=== PATIENT | female | born 1960 | race Caucasian/White ===

== ENCOUNTER → 2018-03-19 11:45 | Outpatient (CLI) | payer OTHER, SELFPAY ==
[2018-03-19 11:51] LABS: RBC Urine None Seen (0-5/HPF)
[2018-03-19 12:17] LABS: Add Manual Diff / Slide Review NO; Basophils Percent Auto 0.9 % (0-2); Eosinophils Percent Auto 3.7 % (2-4); Hematocrit 41.4 % (36-46); Hemoglobin 13.9 g/dL (12.0-16.0); Lymphocytes Percent Auto 36.6 % (25-40); Mean Corpuscular HGB Conc 33.5 % (30-36); Mean Corpuscular Hemoglobin 28.8 PG (26-34); Mean Corpuscular Volume 85.8 fL (80-100); Monocytes Percent Auto 7.3 % (3-14); Neutrophils Absolute Auto 3400 /uL (3000-5900); Neutrophils Percent Auto 51.5 % (50-75); Platelet Count 277 X10^3/uL (150-400); Red Blood Cell Count 4.82 X10^6/uL (4.0-5.2); Red Cell Distribution Width 13.7 % (11.6-14.8); White Blood Cell Count 6.5 X10^3/uL (4.5-11.0)
[2018-03-19 12:29] LABS: Alanine Aminotransferase 35 IU/L (9-52); Albumin 4.4 g/dL (3.5-5.0); Albumin Globulin Ratio 1.6 (1.0-2.8); Alkaline Phosphatase 71 U/L (38-126); Aspartate Aminotransferase 24 IU/L (14-36); BUN Creatinine Ratio 23.8 (6-22); Bilirubin Total 0.5 mg/dL (0.2-1.3); Blood Urea Nitrogen 19 mg/dL (7-17); Calcium 9.2 mg/dL (8.4-10.2); Carbon Dioxide 29 mmol/L (22-32); Chloride 106 mmol/L (98-107); Cholesterol 219 mg/dL (140-199); Estimated Glomerular Filt Rate > 60.0 mL/min (>60); Globulin 2.7 g/dL (1.7-4.1); Glucose 103 mg/dL (70-100); HDL Cholesterol 54 mg/dL (40-60); HEMOLYSIS < 15 (0-50); LDL Cholesterol Calculated 119 mg/dL (<100); Sodium 145 mmol/L (137-145); Total Protein 7.1 g/dL (6.3-8.2); Triglycerides 231 mg/dL (35-150)
[2018-03-19 12:32] LABS: Appearance Urine UA CLEAR; Bilirubin Urine UA NEGATIVE (NEGATIVE); Color Urine UA YELLOW; Glucose Urine UA NEGATIVE (Normal); Ketones Urine UA NEGATIVE (NEGATIVE); Leukocyte Esterase Urine UA 1+ (NEGATIVE); Nitrite Urine UA Negative (Negative); Occult Blood Urine UA NEGATIVE (Negative); Protein Urine UA NEGATIVE (Negative); Urobilinogen Urine UA 0.2 E.U./dL (0.2)
[2018-03-19 13:02] LABS: Amorphous Sediment Urine 1+; Bacteria Urine Few (2-10); Mucus Urine 1+ (Negative); Squamous Epithelial Cell Urine 1-5 /HPF; Transitional Epi Cells Urine 0-1/HPF (0-5/HPF); WBC Urine 5-10/HPF (0-5/HPF)
[2018-03-19 13:04] LABS: Culture Indicated Urine Specimen Cultured
[2018-03-19 13:27] LABS: Thyroid Stimulating Hormone 2.13 uIU/mL (0.47-4.68)
== END ==
PROVIDERS: PCP Family Medicine; Visit Provider Family Medicine
DX: E78.1 Pure hyperglyceridemia (principal); I10 Essential (primary) hypertension; Z51.81 Encounter for therapeutic drug level monitoring
CPT/HCPCS: 36415; 80053; 80061; 81001; 84443; 85025; 87086

== ENCOUNTER → 2018-11-19 18:02 | Outpatient (CLI) | payer OTHER, SELFPAY ==
--- NOTE | 2018-11-19 | DI.RAD.S_ITS ---
PROCEDURE: XR KNEE LT 3V INDICATIONS: left knee pain TECHNIQUE: 3 views of the knee were acquired. COMPARISON: None. FINDINGS: Bones: Moderate tricompartment osteoarthritis is seen. No acute fractures or dislocations. No suspicious bony lesions. No patella subluxation. Soft tissues: There is small suprapatellar joint effusion. No suspicious soft tissue calcifications. IMPRESSION: Moderate tricompartmental osteoarthritis and small joint effusion. Dictated by: Azar Sommer M.D. on 11/20/2018 at 8:41 Approved by: Azar Sommer M.D. on 11/20/2018 at 8:43
== END ==
PROVIDERS: PCP Family Medicine; Visit Provider Physician Assistant
DX: M25.562 Pain in left knee (principal); M17.12 Unilateral primary osteoarthritis, left knee; M25.462 Effusion, left knee
CPT/HCPCS: 73562

== ENCOUNTER 2019-02-18 16:00 | Outpatient (RCR) | payer OTHER, SELFPAY ==
--- NOTE | 2019-01-15 15:17 | PT.OIE ---
Current Diagnoses Unilateral primary osteoarthritis, left knee (01/15/19) Pain in unspecified knee (01/15/19) Provider Visit Care Team Role Provider Type Connie Brown DO Attending Provider Physician Primary Care Provider Specialty: Family Practice Address: [address] [place] [address], [id number] Email: [email or web address] Physical Therapy Initial Evaluation PT-OP-A Visit Information Start: 01/14/19 09:41 Freq: Status: Active Protocol: Document 01/15/19 13:06 [facility] (Rec: 01/15/19 15:17 [facility] [id number]) Out-Patient Physical Therapy Visit Information Visit Information Visit Type Initial Evaluation Visit Start Time 13:47 Visit Stop Time 14:30 Total Visit Minutes 43 Visit Number 1 Number of [employer] Visits 0 PT-OP-B Current Condition Start: 01/14/19 09:41 Freq: Status: Active Protocol: Document 01/15/19 13:06 [facility] (Rec: 01/15/19 15:17 [facility] [id number]) Current Condition History of Current Condition Onset Date October Current Complaints B knee pain History of Current Condition Pt reports they were [place] and her knees were hurting while she was walking a lot. She was having a hard time getting up the stairs. Pt reports she had a lot going on when she returned from [place] and after could not put weight into left leg well. Pt reports November 19 was when she had start of significant L knee pain. Pt reports for several days it hurt so bad that she couldnt move it and used crutches and a cane for a few days. Pt reports it started to get better but both of her knees still bother her with movement. Pt reports she takes osteo biflex and that helps d /t history of mild knee pain. Pt reports she feels like her weight doesn't help Prior Treatments and Tests Xray show arthritis Treatment Goals Patient/Caregiver Goals Be able to walk without having to worry she is doing any damage; be able to work out in order to lose weight PT-OP-C Subjective Start: 01/14/19 09:41 Freq: Status: Active Protocol: Document 01/15/19 13:06 [facility] (Rec: 01/15/19 15:17 [facility] [id number]) Patient Questionnaires Lower Extremity Functional Scale LEFS Score 45 LEFS Impairment 40 to 59% Impaired (Score 32- 47) OP-PT Pain Assessment Location B knees Pain Location Details L>R; pain all around the knee Scale Used Numeric (1 - 10) Description Aching Sharp Frequency Intermittent Pain Aggravating Factors Standing Walking Stair Climbing Other Pain Aggravating Factors stand on it wrong, squatting, standing after sitting for a while Pain Alleviating Factors Cold Medication Other Pain Alleviating Factors tumeric PT-OP-F Manual Assessment Start: 01/14/19 09:41 Freq: Status: Active Protocol: Document 01/15/19 13:06 [facility] (Rec: 01/15/19 15:17 [facility] [id number]) Manual Assessments Joint Mobility Assessment Joint Mobility Assessment equal greater trochanter & iliac crests; compensated supinated B feet, ER of femur & tibia L and ER of femur & IR tibia R PT-OP-G Mobility & Gait Start: 01/14/19 09:41 Freq: Status: Active Protocol: Document 01/15/19 13:06 [facility] (Rec: 01/15/19 15:17 [facility] [id number]) OP Gait Assessment Comments Gait Comments Pt has ER of left side of pelvis with push off and dec ant elevation & post depression PT-OP-K Range of Motion Start: 01/14/19 09:41 Freq: Status: Active Protocol: Document 01/15/19 13:06 [facility] (Rec: 01/15/19 15:17 [facility] [id number]) Knee Goniometric Range of Motion Knee Right Flexion Active (degrees) 115 Extension Active (degrees) 0 Left Flexion Active (degrees) 115 Extension Active (degrees) 4 PT-OP-L Special Tests Start: 01/14/19 09:41 Freq: Status: Active Protocol: Document 01/15/19 13:06 [facility] (Rec: 01/15/19 15:17 [facility] [id number]) Special Tests Knee Special Tests Royer Test Results slight tightness L Alexandra Test Test Results neg B Posterior Draw Test Results neg B Varus- 25 Degrees Test Results neg B Valgus- 25 Degrees Test Results slight laxity L Edelmira's Test Results neg B Apley's Compression Test Results neg B Straight Leg Raise Test Results mild HS tightness PT-OP-M Strength Start: 01/14/19 09:41 Freq: Status: Active Protocol: Document 01/15/19 13:06 [facility] (Rec: 01/15/19 15:17 [facility] [id number]) Hip Strength Hip Manual Muscle Testing Right Flexion (L2) 5 Normal Extension (S1) 3+ Fair+ Abduction 4 Good Adduction 5 Normal External Rotation 5 Normal Internal Rotation 5 Normal Left Extension (S1) 3+ Fair+ Abduction 3+ Fair+ External Rotation 3+ Fair+ Internal Rotation 3+ Fair+ Knee Strength Knee Manual Muscle Testing Right Flexion (S2) 4+ Good+ Extension (L3) 4+ Good+ Left Flexion (S2) 4 Good Extension (L3) 4 Good Ankle/Foot Strength Ankle and Foot Manual Muscle Testing Right Dorsiflexion (L4) 5 Normal Plantarflexion (S1) 5 Normal Left Dorsiflexion (L4) 5 Normal Plantarflexion (S1) 4+ Good+ PT-OP-Q Treatments Start: 01/14/19 09:41 Freq: Status: Active Protocol: Document 01/15/19 13:06 [facility] (Rec: 01/15/19 15:17 [facility] [id number]) Therapeutic Exercises Sidelying Exercises IR Sidelying Exercise Name reverse clamshell Side bilateral Reps/Minutes 10 abd Sidelying Exercise Name hip Side bilateral Reps/Minutes 10 ER Sidelying Exercise Name clamshells Side bilateral Reps/Minutes 15 Standing Exercises heel raises Standing Exercise Name single leg Side bilateral Reps/Minutes 20 PT-OP-T Assessment and Plan Start: 01/14/19 09:41 Freq: Status: Active Protocol: Document 01/15/19 13:06 [facility] (Rec: 01/15/19 15:17 [facility] [id number]) Physical Therapy Assessment Rehab Potential Rehabilitation Potential Excellent Evaluation Complexity Number of Personal Factors/Comorbidities 3 or More Number of Body Systems Impaired 4 or More Clinical Presentation at Evaluation Stable Impairments Impairments Activity Tolerance Balance Functional Activities Functional Mobility Gait Pain Posture ROM Soft Tissue Mobility Goals stairs Retirement Goal (LTG) Pt will be able to go up/down stairs reciprocally without pain LTG Duration 03/17/19 strength Short Term Goal (STG) Pt will be indep with HEP STG Duration 02/14/19 Retirement Goal (LTG) Pt will have 5/5 LE strength in order to allow her to workout and do typical activities LTG Duration 03/17/19 walking Retirement Goal (LTG) Pt will be able to walk 2 miles without inc in pain more than 1 point. LTG Duration 03/17/19 Assessment Summary Assessment Pt presents with B knee pain likely d/t OA as seen in imaging. No positive ligamentous or meniscal testing. She has significant L >R sided weakness and will require PT in order to address gait deviations, dec activity tolerance, pain, and weakness . Physical Therapy Plan Frequency and Duration Frequency of Treatment 1-2x/week Duration of Treatment 2 months Plan of Care Start Date 01/15/19 Plan of Care End Date 03/17/19 Therapeutic Interventions Therapeutic Interventions Aquatic Therapy Balance Training Gait Training Home Exercise Program Joint Mobilizations Manual Therapy Neuromuscular Re-education Patient/Caregiver Education Self-Care/Home Management Soft Tissue Mobilization Taping Therapeutic Activities Therapeutic Exercises Modalities Cold Pack/Ice Massage Electric Stimulation Hot Packs Infrared Therapy Iontophoresis Ultrasound Next Visit Focus/Plan Next Note Type Treatment Note Next Visit Plan advance hip strenghtening, review HEP, assess soft tissue mobility, seated stepper
--- NOTE | 2019-01-15 15:18 | PT.OPPOC ---
Current Diagnoses Unilateral primary osteoarthritis, left knee (01/15/19) Pain in unspecified knee (01/15/19) Provider Visit Care Team Role Provider Type Connie Brown DO Attending Provider Physician Primary Care Provider Specialty: Family Practice Address: [address] [place] [address], [id number] Email: [email or web address] Plan Of Care PT-OP-T Assessment and Plan Start: 01/14/19 09:41 Freq: Status: Active Protocol: Document 01/15/19 13:06 [facility] (Rec: 01/15/19 15:17 [facility] [id number]) Physical Therapy Assessment Rehab Potential Rehabilitation Potential Excellent Evaluation Complexity Number of Personal Factors/Comorbidities 3 or More Number of Body Systems Impaired 4 or More Clinical Presentation at Evaluation Stable Impairments Impairments Activity Tolerance Balance Functional Activities Functional Mobility Gait Pain Posture ROM Soft Tissue Mobility Goals stairs Group Home Goal (LTG) Pt will be able to go up/down stairs reciprocally without pain LTG Duration 03/17/19 strength Short Term Goal (STG) Pt will be indep with HEP STG Duration 02/14/19 Group Home Goal (LTG) Pt will have 5/5 LE strength in order to allow her to workout and do typical activities LTG Duration 03/17/19 walking Group Home Goal (LTG) Pt will be able to walk 2 miles without inc in pain more than 1 point. LTG Duration 03/17/19 Assessment Summary Assessment Pt presents with B knee pain likely d/t OA as seen in imaging. No positive ligamentous or meniscal testing. She has significant L >R sided weakness and will require PT in order to address gait deviations, dec activity tolerance, pain, and weakness . Physical Therapy Plan Frequency and Duration Frequency of Treatment 1-2x/week Duration of Treatment 2 months Plan of Care Start Date 01/15/19 Plan of Care End Date 03/17/19 Therapeutic Interventions Therapeutic Interventions Aquatic Therapy Balance Training Gait Training Home Exercise Program Joint Mobilizations Manual Therapy Neuromuscular Re-education Patient/Caregiver Education Self-Care/Home Management Soft Tissue Mobilization Taping Therapeutic Activities Therapeutic Exercises Modalities Cold Pack/Ice Massage Electric Stimulation Hot Packs Infrared Therapy Iontophoresis Ultrasound Next Visit Focus/Plan Next Note Type Treatment Note Next Visit Plan advance hip strenghtening, review HEP, assess soft tissue mobility, seated stepper Plan of Care Dates Plan of Care Start Date 01/15/19 Plan of Care End Date 03/17/19 Please Sign and Return: I have reviewed this Plan of Care and certify that the skilled therapy services above are required to meet the patient?s needs. Physician Signature Date Printed Name and Credentials Clinical Instructor Signature Printed Name and Credentials
--- NOTE | 2019-01-22 12:33 | PT.OTN ---
Current Diagnoses Unilateral primary osteoarthritis, left knee (01/21/19) Pain in unspecified knee (01/21/19) Physical Therapy Treatment Note PT-OP-A Visit Information Start: 01/14/19 09:41 Freq: Status: Active Protocol: Document 01/21/19 11:30 [facility] (Rec: 01/22/19 12:33 [facility] [id number]) Out-Patient Physical Therapy Visit Information Visit Information Visit Type Treatment Note Visit Start Time 11:30 Visit Stop Time 12:15 Total Visit Minutes 45 Visit Number 2 Evaluation Information Evaluation Date 01/15/19 PT-OP-B Current Condition Start: 01/14/19 09:41 Freq: Status: Active Protocol: Document 01/15/19 13:06 [facility] (Rec: 01/15/19 15:17 [facility] [id number]) Current Condition History of Current Condition Onset Date October Current Complaints B knee pain History of Current Condition Pt reports they were [place] and her knees were hurting while she was walking a lot. She was having a hard time getting up the stairs. Pt reports she had a lot going on when she returned [place] and after could not put weight into left leg well. Pt reports November 19 was when she had start of significant L knee pain. Pt reports for several days it hurt so bad that she couldnt move it and used crutches and a cane for a few days. Pt reports it started to get better but both of her knees still bother her with movement. Pt reports she takes osteo biflex and that helps d /t history of mild knee pain. Pt reports she feels like her weight doesn't help Prior Treatments and Tests Xray show arthritis Treatment Goals Patient/Caregiver Goals Be able to walk without having to worry she is doing any damage; be able to work out in order to lose weight PT-OP-C Subjective Start: 01/14/19 09:41 Freq: Status: Active Protocol: Document 01/21/19 11:30 [facility] (Rec: 01/22/19 12:33 [facility] [id number]) OP-PT Subjective Patient Comments Patient Comments Claire reports she has been working on her exercises and feels better with them. She has her most difficulty going up and down stairs. PT-OP-F Manual Assessment Start: 01/14/19 09:41 Freq: Status: Active Protocol: Document 01/15/19 13:06 [facility] (Rec: 01/15/19 15:17 [facility] [id number]) Manual Assessments Joint Mobility Assessment Joint Mobility Assessment equal greater trochanter & iliac crests; compensated supinated B feet, ER of femur & tibia L and ER of femur & IR tibia R PT-OP-G Mobility & Gait Start: 01/14/19 09:41 Freq: Status: Active Protocol: Document 01/15/19 13:06 [facility] (Rec: 01/15/19 15:17 [facility] [id number]) OP Gait Assessment Comments Gait Comments Pt has ER of left side of pelvis with push off and dec ant elevation & post depression PT-OP-K Range of Motion Start: 01/14/19 09:41 Freq: Status: Active Protocol: Document 01/15/19 13:06 [facility] (Rec: 01/15/19 15:17 [facility] [id number]) Knee Goniometric Range of Motion Knee Right Flexion Active (degrees) 115 Extension Active (degrees) 0 Left Flexion Active (degrees) 115 Extension Active (degrees) 4 PT-OP-L Special Tests Start: 01/14/19 09:41 Freq: Status: Active Protocol: Document 01/15/19 13:06 [facility] (Rec: 01/15/19 15:17 [facility] [id number]) Special Tests Knee Special Tests Royer Test Results slight tightness L Alexandra Test Test Results neg B Posterior Draw Test Results neg B Varus- 25 Degrees Test Results neg B Valgus- 25 Degrees Test Results slight laxity L Edelmira's Test Results neg B Apley's Compression Test Results neg B Straight Leg Raise Test Results mild HS tightness PT-OP-M Strength Start: 01/14/19 09:41 Freq: Status: Active Protocol: Document 01/15/19 13:06 [facility] (Rec: 01/15/19 15:17 [facility] [id number]) Hip Strength Hip Manual Muscle Testing Right Flexion (L2) 5 Normal Extension (S1) 3+ Fair+ Abduction 4 Good Adduction 5 Normal External Rotation 5 Normal Internal Rotation 5 Normal Left Extension (S1) 3+ Fair+ Abduction 3+ Fair+ External Rotation 3+ Fair+ Internal Rotation 3+ Fair+ Knee Strength Knee Manual Muscle Testing Right Flexion (S2) 4+ Good+ Extension (L3) 4+ Good+ Left Flexion (S2) 4 Good Extension (L3) 4 Good Ankle/Foot Strength Ankle and Foot Manual Muscle Testing Right Dorsiflexion (L4) 5 Normal Plantarflexion (S1) 5 Normal Left Dorsiflexion (L4) 5 Normal Plantarflexion (S1) 4+ Good+ PT-OP-Q Treatments Start: 01/14/19 09:41 Freq: Status: Active Protocol: Document 01/21/19 11:30 [facility] (Rec: 01/22/19 12:33 [facility] [id number]) Cardio Equipment Recumbent Bicycle Duration (Minutes) 5 Resistance 0 Seat Position closest position Gym Equipment Shuttle Recovery Unilateral Squats Resistance 25 lbs Reps/Time x 15 each Bilateral Squats Details bilateral squats Resistance 37 lbs Reps/Time 3 sets of 10 reps Therapeutic Exercises Supine Exercises 1 Supine Exercise Name quad sets Reps/Minutes 10 reps x 5 second hold Sidelying Exercises IR Sidelying Exercise Name reverse clamshell Side bilateral Reps/Minutes 2x 10 reps abd Sidelying Exercise Name hip abduction Side bilateral Reps/Minutes 2 x 10 ER Sidelying Exercise Name clamshells Side bilateral Reps/Minutes 2 x 10 Standing Exercises 4 Standing Exercise Name sit to stand with hip hinge Reps/Minutes x 10 reps 3 Standing Exercise Name standing hip abduction in parallel bars Reps/Minutes 2 x 10 2 Standing Exercise Name standing calf stretch Reps/Minutes 2 x 30 seconds 1 Standing Exercise Name standing single leg balance Reps/Minutes x 3 reps heel raises Standing Exercise Name single leg Side bilateral Reps/Minutes 20 PT-OP-T Assessment and Plan Start: 01/14/19 09:41 Freq: Status: Active Protocol: Document 01/21/19 11:30 [facility] (Rec: 01/22/19 12:33 [facility] [id number]) Physical Therapy Assessment Assessment Summary Assessment Good tolerance for recumbant bike today and pt has a stationary bike at home that she will start using. Added in standing strengthening exercises, balance training, and strength training on the shuttle. Good tolerance for ther ex today. The patient collapses in on the left arch more so than the right and I did talk to her about super feet today to help support. Physical Therapy Plan Frequency and Duration Frequency of Treatment 1-2x/week Duration of Treatment 2 months Plan of Care Start Date 01/15/19 Plan of Care End Date 03/17/19 Therapeutic Interventions Therapeutic Interventions Aquatic Therapy Balance Training Gait Training Home Exercise Program Joint Mobilizations Manual Therapy Neuromuscular Re-education Patient/Caregiver Education Self-Care/Home Management Soft Tissue Mobilization Taping Therapeutic Activities Therapeutic Exercises Modalities Cold Pack/Ice Massage Electric Stimulation Hot Packs Infrared Therapy Iontophoresis Ultrasound Next Visit Focus/Plan Next Note Type Treatment Note Next Visit Plan continue to advance exercises as tolerated, work on hip hinge with squat and continue to strengthen hip and knee
--- NOTE | 2019-02-04 11:14 | PT.OTN ---
Current Diagnoses Unilateral primary osteoarthritis, left knee (02/04/19) Pain in unspecified knee (02/04/19) Physical Therapy Treatment Note PT-OP-A Visit Information Start: 01/14/19 09:41 Freq: Status: Active Protocol: Document 02/04/19 10:30 DC[facility] (Rec: 02/04/19 11:14 DCW [id number]) Out-Patient Physical Therapy Visit Information Visit Information Visit Type Treatment Note Visit Start Time 10:30 Visit Stop Time 11:15 Total Visit Minutes 45 Visit Number 3 Evaluation Information Evaluation Date 01/15/19 PT-OP-B Current Condition Start: 01/14/19 09:41 Freq: Status: Active Protocol: Document 01/15/19 13:06 [facility] (Rec: 01/15/19 15:17 [facility] [id number]) Current Condition History of Current Condition Onset Date October Current Complaints B knee pain History of Current Condition Pt reports they were [place] and her knees were hurting while she was walking a lot. She was having a hard time getting up the stairs. Pt reports she had a lot going on when she returned [place] and after could not put weight into left leg well. Pt reports November 19 was when she had start of significant L knee pain. Pt reports for several days it hurt so bad that she couldnt move it and used crutches and a cane for a few days. Pt reports it started to get better but both of her knees still bother her with movement. Pt reports she takes osteo biflex and that helps d /t history of mild knee pain. Pt reports she feels like her weight doesn't help Prior Treatments and Tests Xray show arthritis Treatment Goals Patient/Caregiver Goals Be able to walk without having to worry she is doing any damage; be able to work out in order to lose weight PT-OP-C Subjective Start: 01/14/19 09:41 Freq: Status: Active Protocol: Document 02/04/19 10:30 DC[facility] (Rec: 02/04/19 11:14 DCW [id number]) OP-PT Subjective Patient Comments Patient Comments Pt notes her knees are doing better overall, still has most of her pain with stairs. PT-OP-F Manual Assessment Start: 01/14/19 09:41 Freq: Status: Active Protocol: Document 01/15/19 13:06 [facility] (Rec: 01/15/19 15:17 [facility] [id number]) Manual Assessments Joint Mobility Assessment Joint Mobility Assessment equal greater trochanter & iliac crests; compensated supinated B feet, ER of femur & tibia L and ER of femur & IR tibia R PT-OP-G Mobility & Gait Start: 01/14/19 09:41 Freq: Status: Active Protocol: Document 01/15/19 13:06 [facility] (Rec: 01/15/19 15:17 [facility] [id number]) OP Gait Assessment Comments Gait Comments Pt has ER of left side of pelvis with push off and dec ant elevation & post depression PT-OP-K Range of Motion Start: 01/14/19 09:41 Freq: Status: Active Protocol: Document 01/15/19 13:06 [facility] (Rec: 01/15/19 15:17 [facility] [id number]) Knee Goniometric Range of Motion Knee Right Flexion Active (degrees) 115 Extension Active (degrees) 0 Left Flexion Active (degrees) 115 Extension Active (degrees) 4 PT-OP-L Special Tests Start: 01/14/19 09:41 Freq: Status: Active Protocol: Document 01/15/19 13:06 [facility] (Rec: 01/15/19 15:17 [facility] [id number]) Special Tests Knee Special Tests Royer Test Results slight tightness L Alexandra Test Test Results neg B Posterior Draw Test Results neg B Varus- 25 Degrees Test Results neg B Valgus- 25 Degrees Test Results slight laxity L Edelmira's Test Results neg B Apley's Compression Test Results neg B Straight Leg Raise Test Results mild HS tightness PT-OP-M Strength Start: 01/14/19 09:41 Freq: Status: Active Protocol: Document 01/15/19 13:06 [facility] (Rec: 01/15/19 15:17 [facility] [id number]) Hip Strength Hip Manual Muscle Testing Right Flexion (L2) 5 Normal Extension (S1) 3+ Fair+ Abduction 4 Good Adduction 5 Normal External Rotation 5 Normal Internal Rotation 5 Normal Left Extension (S1) 3+ Fair+ Abduction 3+ Fair+ External Rotation 3+ Fair+ Internal Rotation 3+ Fair+ Knee Strength Knee Manual Muscle Testing Right Flexion (S2) 4+ Good+ Extension (L3) 4+ Good+ Left Flexion (S2) 4 Good Extension (L3) 4 Good Ankle/Foot Strength Ankle and Foot Manual Muscle Testing Right Dorsiflexion (L4) 5 Normal Plantarflexion (S1) 5 Normal Left Dorsiflexion (L4) 5 Normal Plantarflexion (S1) 4+ Good+ PT-OP-Q Treatments Start: 01/14/19 09:41 Freq: Status: Active Protocol: Document 02/04/19 10:30 [facility] (Rec: 02/04/19 11:14 [facility] [id number]) Cardio Equipment Recumbent Bicycle Duration (Minutes) 5 Resistance 3 Seat Position 2 Gym Equipment Shuttle Recovery Unilateral Squats Resistance 37# Reps/Time x15 Bilateral Squats Resistance 62# Reps/Time 2x15 Therapeutic Exercises Supine Exercises Bridging Supine Exercise Name Bridging SAQ Supine Exercise Name SAQ Side bilateral Resistance 4# SLR Supine Exercise Name SLR Side bilateral Resistance 4# Sitting Exercises HS Curls Sitting Exercise Name HS Curls Side bilateral Resistance Lv 3 Equipment Used T-band Standing Exercises Step-ups Standing Exercise Name Step-ups/downs Side bilateral Equipment Used 4 step TKE Standing Exercise Name TKE Side bilateral Resistance Lv 3 Equipment Used T-band 2 Standing Exercise Name standing calf stretch Reps/Minutes 2 x 30 seconds 1 Standing Exercise Name standing single leg balance Reps/Minutes x 3 reps heel raises Standing Exercise Name single leg Side bilateral Reps/Minutes 20 PT-OP-T Assessment and Plan Start: 01/14/19 09:41 Freq: Status: Active Protocol: Document 02/04/19 10:30 [facility] (Rec: 02/04/19 11:14 [facility] [id number]) Physical Therapy Assessment Impairments Impairments Activity Tolerance Balance Functional Activities Functional Mobility Gait Pain Posture ROM Soft Tissue Mobility Goals stairs Fish Flipper Goal (LTG) Pt will be able to go up/down stairs reciprocally without pain LTG Duration 03/17/19 strength Short Term Goal (STG) Pt will be indep with HEP STG Duration 02/14/19 Senior Living Goal (LTG) Pt will have 5/5 LE strength in order to allow her to workout and do typical activities LTG Duration 03/17/19 walking Fish Flipper Goal (LTG) Pt will be able to walk 2 miles without inc in pain more than 1 point. LTG Duration 03/17/19 Assessment Summary Assessment Pt tolerated increased resistance and new exercises very well today, had no complaints of pain or difficulty by end of session. Physical Therapy Plan Frequency and Duration Frequency of Treatment 1-2x/week Duration of Treatment 2 months Plan of Care Start Date 01/15/19 Plan of Care End Date 03/17/19 Therapeutic Interventions Therapeutic Interventions Aquatic Therapy Balance Training Gait Training Home Exercise Program Joint Mobilizations Manual Therapy Neuromuscular Re-education Patient/Caregiver Education Self-Care/Home Management Soft Tissue Mobilization Taping Therapeutic Activities Therapeutic Exercises Modalities Cold Pack/Ice Massage Electric Stimulation Hot Packs Infrared Therapy Iontophoresis Ultrasound Next Visit Focus/Plan Next Note Type Treatment Note Next Visit Plan continue to advance exercises as tolerated, work on hip hinge with squat and continue to strengthen hip and knee
--- NOTE | 2019-02-18 18:59 | PT.OTN ---
Current Diagnoses Unilateral primary osteoarthritis, left knee (02/18/19) Pain in unspecified knee (02/18/19) Physical Therapy Treatment Note PT-OP-A Visit Information Start: 01/14/19 09:41 Freq: Status: Active Protocol: Document 02/18/19 16:15 [facility] (Rec: 02/18/19 18:03 [facility] [id number]) Out-Patient Physical Therapy Visit Information Visit Information Visit Type Discharge Summary Visit Start Time 16:15 Visit Stop Time 16:55 Total Visit Minutes 40 Visit Number 4 Number of [employer]OU[employer] ARCHITECT Visits 0 PT-OP-B Current Condition Start: 01/14/19 09:41 Freq: Status: Active Protocol: Document 01/15/19 13:06 [facility] (Rec: 01/15/19 15:17 [facility] [id number]) Current Condition History of Current Condition Onset Date October Current Complaints B knee pain History of Current Condition Pt reports they were [place] and her knees were hurting while she was walking a lot. She was having a hard time getting up the stairs. Pt reports she had a lot going on when she [place] and after could not put weight into left leg well. Pt reports November 19 was when she had start of significant L knee pain. Pt reports for several days it hurt so bad that she couldnt move it and used crutches and a cane for a few days. Pt reports it started to get better but both of her knees still bother her with movement. Pt reports she takes osteo biflex and that helps d /t history of mild knee pain. Pt reports she feels like her weight doesn't help Prior Treatments and Tests Xray show arthritis Treatment Goals Patient/Caregiver Goals Be able to walk without having to worry she is doing any damage; be able to work out in order to lose weight PT-OP-C Subjective Start: 01/14/19 09:41 Freq: Status: Active Protocol: Document 02/18/19 16:15 [facility] (Rec: 02/18/19 18:03 [facility] [id number]) OP-PT Subjective Patient Comments Patient Comments Pt states that she has had no pain, but still feels a little weaker in her L leg. She feel confident with her HEP and would like to discharge today, as she will be out of town next week. She believes that her weight has an effect on her knee pain and is actively trying to lose weight. PT-OP-F Manual Assessment Start: 01/14/19 09:41 Freq: Status: Active Protocol: Document 01/15/19 13:06 [facility] (Rec: 01/15/19 15:17 [facility] [id number]) Manual Assessments Joint Mobility Assessment Joint Mobility Assessment equal greater trochanter & iliac crests; compensated supinated B feet, ER of femur & tibia L and ER of femur & IR tibia R PT-OP-G Mobility & Gait Start: 01/14/19 09:41 Freq: Status: Active Protocol: Document 01/15/19 13:06 [facility] (Rec: 01/15/19 15:17 [facility] [id number]) OP Gait Assessment Comments Gait Comments Pt has ER of left side of pelvis with push off and dec ant elevation & post depression PT-OP-K Range of Motion Start: 01/14/19 09:41 Freq: Status: Active Protocol: Document 01/15/19 13:06 [facility] (Rec: 01/15/19 15:17 [facility] [id number]) Knee Goniometric Range of Motion Knee Right Flexion Active (degrees) 115 Extension Active (degrees) 0 Left Flexion Active (degrees) 115 Extension Active (degrees) 4 PT-OP-L Special Tests Start: 01/14/19 09:41 Freq: Status: Active Protocol: Document 01/15/19 13:06 [facility] (Rec: 01/15/19 15:17 [facility] [id number]) Special Tests Knee Special Tests Royer Test Results slight tightness L Alexandra Test Test Results neg B Posterior Draw Test Results neg B Varus- 25 Degrees Test Results neg B Valgus- 25 Degrees Test Results slight laxity L Edelmira's Test Results neg B Apley's Compression Test Results neg B Straight Leg Raise Test Results mild HS tightness PT-OP-M Strength Start: 01/14/19 09:41 Freq: Status: Active Protocol: Document 02/18/19 16:15 [facility] (Rec: 02/18/19 16:22 [facility] [id number]) Hip Strength Hip Manual Muscle Testing Right Extension (S1) 5 Normal Abduction 5 Normal Left Flexion (L2) 4- Good- Extension (S1) 4 Good Abduction 5 Normal External Rotation 5 Normal Internal Rotation 5 Normal Knee Strength Knee Manual Muscle Testing Right Flexion (S2) 4+ Good+ Extension (L3) 5 Normal Left Flexion (S2) 4+ Good+ Extension (L3) 5 Normal Ankle/Foot Strength Ankle and Foot Manual Muscle Testing Left Dorsiflexion (L4) 5 Normal Plantarflexion (S1) 5 Normal PT-OP-Q Treatments Start: 01/14/19 09:41 Freq: Status: Active Protocol: Document 02/18/19 16:15 [facility] (Rec: 02/18/19 18:03 [facility] [email or web address]) Cardio Equipment Recumbent Bicycle Duration (Minutes) 5 Resistance 3 Seat Position 2 Gym Equipment Shuttle Recovery Unilateral Squats Resistance 50# Reps/Time 15 reps Bilateral Squats Resistance 75# Reps/Time 15 reps Therapeutic Exercises Sidelying Exercises IR Sidelying Exercise Name reverse clamshell Side bilateral Resistance level 2 Equipment Used theraband Reps/Minutes 10 reps abd Sidelying Exercise Name hip abduction Side bilateral Resistance level 2 Equipment Used theraband Reps/Minutes 10 reps ER Sidelying Exercise Name clamshells Side bilateral Resistance level 2 Equipment Used theraband Reps/Minutes 10 reps Sitting Exercises HS Curls Sitting Exercise Name HS Curls Side bilateral Resistance gym machine Reps/Minutes 3x10 reps Comments educated on use and added to HEP Standing Exercises Step-ups Standing Exercise Name Step-ups/downs Side bilateral Equipment Used 6 step Comments educated on forward weight shift during descent. pt reported no pain 4 Standing Exercise Name sit to stand with hip hinge Resistance level 2 Equipment Used theraband Reps/Minutes x 10 reps Comments tband around thighs heel raises Standing Exercise Name single leg Side bilateral Reps/Minutes 10 each side Self-Care/Home Management Treatment Education Patient Education Home Exercise Program Other Education pt form checked and progressed sidelying exercises (level 2 theraband). pt has a bike and home gym and feels confident in performing exercises at home PT-OP-T Assessment and Plan Start: 01/14/19 09:41 Freq: Status: Active Protocol: Document 02/18/19 16:15 [facility] (Rec: 02/18/19 18:03 [facility] [email or web address]) Physical Therapy Assessment Goals stairs Alf Goal (LTG) Pt will be able to go up/down stairs reciprocally without pain LTG Duration goal met strength Short Term Goal (STG) Pt will be indep with HEP STG Duration goal met Alf Goal (LTG) Pt will have 5/5 LE strength in order to allow her to workout and do typical activities LTG Duration progressing walking Alf Goal (LTG) Pt will be able to walk 2 miles without inc in pain more than 1 point. LTG Duration goal met Assessment Summary Assessment Pt has met most goals and feels confident that performing HEP will help address strength deficits. She has not walked 2 miles but feels confident that she could w/o pain. Pt felt comfortable w progression of HEP. Physical Therapy Plan Discharge Physical Therapy Discharge Reasons Goals Met Discharge Comments most goals have been met and pt plans to continue and progress HEP to address LE weakness
== END 2019-02-25 10:40 | disposition home or self-care (01) ==
LOC: PHYS 16:00
PROVIDERS: PCP Family Medicine; Visit Provider Family Medicine
DX: M25.569 Pain in unspecified knee (principal); M17.12 Unilateral primary osteoarthritis, left knee
CPT/HCPCS: 97110; 97161; 97535

== ENCOUNTER → 2019-06-22 11:24 | Outpatient (CLI) | payer OTHER, SELFPAY ==
[2019-06-22 12:20] LABS: Add Manual Diff / Slide Review NO; Basophils Absolute Auto 100 /uL (0-100); Basophils Percent Auto 0.9 % (0-2); Eosinophils Absolute Auto 200 /uL (0-450); Eosinophils Percent Auto 3.3 % (2-4); Hematocrit 40.8 % (36-46); Hemoglobin 13.7 g/dL (12.0-16.0); Lymphocytes Absolute Auto 2200 /uL (1100-4500); Lymphocytes Percent Auto 34.5 % (25-40); Mean Corpuscular HGB Conc 33.7 % (30-36); Mean Corpuscular Hemoglobin 28.8 PG (26-34); Mean Corpuscular Volume 85.6 fL (80-100); Monocytes Absolute Auto 400 /uL (0-900); Monocytes Percent Auto 6.7 % (3-14); Neutrophils Absolute Auto 3500 /uL (1500-7000); Neutrophils Percent Auto 54.6 % (50-75); Platelet Count 275 X10^3/uL (150-400); Red Blood Cell Count 4.76 X10^6/uL (4.0-5.2); Red Cell Distribution Width 13.9 % (11.6-14.8); White Blood Cell Count 6.4 X10^3/uL (4.5-11.0)
[2019-06-22 12:30] LABS: Alanine Aminotransferase 29 IU/L (<35); Albumin 4.3 g/dL (3.5-5.0); Albumin Globulin Ratio 1.5 (1.0-2.8); Alkaline Phosphatase 82 U/L (38-126); Aspartate Aminotransferase 27 IU/L (14-36); BUN Creatinine Ratio 22.5 (6-22); Bilirubin Total 0.5 mg/dL (0.2-1.3); Blood Urea Nitrogen 18 mg/dL (7-17); Calcium 9.4 mg/dL (8.4-10.2); Carbon Dioxide 29 mmol/L (22-32); Chloride 106 mmol/L (98-107); Cholesterol 228 mg/dL (140-199); Estimated Glomerular Filt Rate > 60.0 mL/min (>60); Globulin 2.8 g/dL (1.7-4.1); Glucose 102 mg/dL (70-100); HDL Cholesterol 48 mg/dL (40-60); HEMOLYSIS < 15 (0-50); LDL Cholesterol Calculated 128 mg/dL (<100); Potassium 4.7 mmol/L (3.4-5.1); Sodium 141 mmol/L (137-145); Total Protein 7.1 g/dL (6.3-8.2); Triglycerides 261 mg/dL (35-150)
[2019-06-22 13:09] LABS: Thyroid Stimulating Hormone 1.41 uIU/mL (0.47-4.68)
== END ==
PROVIDERS: PCP Family Medicine; Visit Provider Family Medicine
DX: Z51.81 Encounter for therapeutic drug level monitoring (principal); E78.1 Pure hyperglyceridemia; I10 Essential (primary) hypertension; K21.9 Gastro-esophageal reflux disease without esophagitis
CPT/HCPCS: 36415; 80053; 80061; 84443; 85025

== ENCOUNTER → 2019-07-21 10:56 | Outpatient (CLI) | payer OTHER, SELFPAY ==
[2019-07-21 11:45] LABS: Appearance Urine UA SL CLOUDY; Bilirubin Urine UA NEGATIVE (NEGATIVE); Color Urine UA YELLOW; Glucose Urine UA NEGATIVE (Negative); Ketones Urine UA NEGATIVE (NEGATIVE); Leukocyte Esterase Urine UA 2+ (NEGATIVE); Nitrite Urine UA NEGATIVE (Negative); Occult Blood Urine UA NEGATIVE (Negative); Protein Urine UA NEGATIVE (Negative); Urobilinogen Urine UA 0.2 E.U./dL (0.2)
[2019-07-21 12:21] LABS: RBC Urine None Seen (0-5/HPF)
[2019-07-21 12:22] LABS: Bacteria Urine Moderate (10-30); Squamous Epithelial Cell Urine 10-30 /HPF (0-5/HPF); WBC Urine 30-100/HPF (0-5/HPF)
== END ==
PROVIDERS: PCP Family Medicine; Visit Provider Family Medicine
DX: I10 Essential (primary) hypertension (principal); E78.1 Pure hyperglyceridemia
CPT/HCPCS: 81003; 81015

== ENCOUNTER 2020-04-27 15:49 | Emergency (ER) | payer OTHER, SELFPAY ==
[2020-04-27] VITALS (10 sets, daily range): BP systolic 124–149; BP diastolic 68–87; PULSE 63–80; RESP 12–19; TEMP 35.7; O2SAT 96–99; BMI 22.6
--- NOTE | 2020-04-27 16:51 | ED_ITS ---
HPI - General Adult <Elieser Chaves DO - Last Filed: 04/28/20 07:09> General Chief complaint: Dizziness Stated complaint: dizzy, high blood pressure Time Seen by Provider: 04/27/20 16:37 Source: patient Mode of arrival: Wheelchair Limitations: no limitations History of Present Illness HPI narrative: 59-year-old female who stated that this morning she woke up and rolled onto her side and had a sudden onset of a room spinning sensation. Has been consistent since then. Has never had anything like this in the past. No headache or sore throat or ringing in her ears. No chest pain or palpitations or shortness of breath. She states that her symptoms seem to be much better when she is lying still and having her head face forward. She can reproduce the symptoms by looking to the left. No trauma. Has not tried anything for symptoms prior to arrival. Related Data Home Medications Medication Instructions Recorded Confirmed [CO-Q-10] #0 10/16/16 07/24/19 [probiotic] #0 11/28/16 07/24/19 glucosamine sulfate [Genicin] 500 mg PO #0 11/28/16 07/24/19 esomeprazole magnesium 20 mg 20 mg PO DAILY 09/19/18 07/24/19 capsule,delayed release turmeric root extract 500 mg 500 mg PO DAILY 07/24/19 07/24/19 capsule Previous Rx's Medication Instructions Recorded losartan 100 mg tablet 100 mg PO Q AM #90 tab 02/09/20 metoprolol tartrate 50 mg tablet 50 mg PO Q DAY #90 tab 02/09/20 meclizine 25 mg PO TID PRN #20 tab 04/27/20 ondansetron 4 mg PO Q8H PRN #10 tab 04/27/20 Allergies Allergy/AdvReac Type Severity Reaction Status Date / Time adhesive [ADHESIVE] Allergy Unknown Verified 04/27/20 15:57 Review of Systems <DO Aliza Oneill Last Filed: 04/28/20 07:09> Constitutional Constitutional: Denies fatigue, Denies fever(s) and Denies headache(s) Eyes Eyes: Denies blurry vision, Denies change in vision and Denies diplopia ENT Ears, Nose, Mouth, and Throat: Reports vertigo, Reports dizziness, Denies headache(s), Denies sinus pain, Denies sinus pressure and Denies sore throat Cardiovascular Cardiovascular: Denies chest pain and Denies dyspnea Respiratory Respiratory: Denies dyspnea Gastrointestinal Gastrointestinal: Denies abdominal pain, Denies change in bowel habits, Reports nausea and Reports vomiting Genitourinary Genitourinary: Denies dysuria Genitourinary: Denies dysuria Musculoskeletal Musculoskeletal: Denies arthralgias, Denies myalgias, Denies numbness and Denies tingling Integumentary/Breasts Skin/Breast: Denies lesions and Denies rash Neurologic Neurologic: Denies behavioral changes, Denies confusion, Reports vertigo, Reports dizziness, Denies headache(s), Denies numbness and Denies tingling Psychiatric Psychiatric: Denies behavioral changes and Denies confusion Endocrine Endocrine: Denies fatigue Hematologic/Lymphatic Hematologic/Lymphatic: Denies easy bleeding and Denies easy bruising Allergic/Immunologic Allergic/Immunologic: Denies urticaria Patient History <Eliesre Chaves DO - Last Filed: 04/28/20 07:09> Medical History Essential hypertension (07/16/17) Hypertension (Inactive) Hypertriglyceridemia (07/16/17) Family History (Updated 09/12/15 @ 00:00 by Conversion Provider) Brother Age: 62 Heart disease Father Age: 88 Heart disease Mother Age: 82 Heart disease Social History Smoking Status: Never smoker alcohol intake: current (Occasional) Smoking Status: Never smoker Exam <Elieser Chaves DO - Last Filed: 04/28/20 07:09> Initial Vital Signs Initial Vital Signs: Vital Signs Temperature 96.3 F L 04/27/20 15:57 Pulse Rate 75 04/27/20 15:57 Respiratory Rate 15 04/27/20 15:57 Blood Pressure 141/77 H 04/27/20 15:57 Pulse Oximetry 96 04/27/20 15:57 Const General: cooperative and healthy appearing Limitations: mental status not altered [facility] Head: normal to inspection and normocephalic Eyes General: appearance normal, both eyes and all related structures Pupils: PERRL Resp Effort & Inspection: normal respiratory effort Auscultation: clear to auscultation bilaterally Cardio Rate: regular rate Rhythm: regular rhythm GI Inspection: non-distended Palpation: soft, No firm and No tender Skin Lesions: no lesions Rashes: no rashes Neuro General: patient alert, patient awake and patient oriented x3 Cranial Nerves: CN's II-XI intact bilaterally Cognition: normal cognition Speech: speech normal Motor: muscle tone normal throughout Sensory Exam: no sensory deficits noted Extrem General: normal to inspection and capillary refill normal Psych Appearance: grossly normal and well kempt <Tito Alcantara MD - Last Filed: 04/27/20 23:17> Initial Vital Signs Initial Vital Signs: Vital Signs Temperature 96.3 F L 04/27/20 15:57 Pulse Rate 75 04/27/20 15:57 Respiratory Rate 15 04/27/20 15:57 Blood Pressure 141/77 H 04/27/20 15:57 Pulse Oximetry 96 04/27/20 15:57 Scores <Elieser Chaves DO - Last Filed: 04/28/20 07:09> GCS [place] coma scale eye opening: Spontaneous Doris coma scale verbal response: Orientated Doris coma scale motor response: Obey commands [place] coma scale total score: 15 Course <Elieser Chaves DO - Last Filed: 04/28/20 07:09> Orders Ordered: Discontinued Medications Sodium Chloride (Normal Saline 0.9%) 1,000 mls @ 1,000 mls/hr IV BOLUS ONE Stop: 04/27/20 20:04 Last Infusion: 04/27/20 20:14 Dose: 0 mls/hr Documented by: Admin: 04/27/20 19:11 Dose: 1,000 mls/hr Documented by: IFEANYI Meclizine HCl (Antivert) 25 mg PO NOW ONE Stop: 04/27/20 16:52 Last Admin: 04/27/20 16:54 Dose: 25 mg Documented by: IFEANYI Ondansetron HCl (Zofran Odt) 4 mg PO NOW ONE Stop: 04/27/20 18:28 Last Admin: 04/27/20 19:01 Dose: 4 mg Documented by: IFEANYI Vital Signs Vital signs: Vital Signs - 8 hr 04/27/20 15:57 04/27/20 16:47 04/27/20 17:00 Temperature 96.3 F L Pulse Rate 75 67 65 Respiratory Rate 15 12 14 Blood Pressure 141/77 H 124/79 Pulse Oximetry 96 98 97 04/27/20 17:30 04/27/20 18:00 04/27/20 18:30 Temperature Pulse Rate 63 70 66 Respiratory Rate 13 15 12 Blood Pressure 135/76 140/86 132/68 Pulse Oximetry 99 99 98 04/27/20 19:00 04/27/20 19:30 04/27/20 20:00 Temperature Pulse Rate 67 72 76 Respiratory Rate 12 17 18 Blood Pressure 128/78 137/85 139/87 Pulse Oximetry 99 97 97 04/27/20 20:22 Temperature Pulse Rate 80 Respiratory Rate 19 Blood Pressure 149/86 H Pulse Oximetry 98 <Tito Alcantara MD - Last Filed: 04/27/20 23:17> Course Course Narrative: Time 7:[address] Chaves, a sign-out. At this time likely vertigo clinically. No imaging indicated this time. Medications given is patient and reassess for improvement. If improve no imaging and discharged home with vertigo diagnosis and medications for vertigo Orders Ordered: Discontinued Medications Sodium Chloride (Normal Saline 0.9%) 1,000 mls @ 1,000 mls/hr IV BOLUS ONE Stop: 04/27/20 20:04 Last Infusion: 04/27/20 20:14 Dose: 0 mls/hr Documented by: Admin: 04/27/20 19:11 Dose: 1,000 mls/hr Documented by: IFEANYI Meclizine HCl (Antivert) 25 mg PO NOW ONE Stop: 04/27/20 16:52 Last Admin: 04/27/20 16:54 Dose: 25 mg Documented by: IFEANYI Ondansetron HCl (Zofran Odt) 4 mg PO NOW ONE Stop: 04/27/20 18:28 Last Admin: 04/27/20 19:01 Dose: 4 mg Documented by: IFEANYI Reevaluation(s) Reevaluation #1: Spoke with patient and . She she states feels much better after Antivert and Zofran. No nausea. Dizziness has improved significantly. Able to turn her head and eyes without dizziness. IV fluids still being given. Time: 19:44 Reevaluation #2: Patient up in seated position. Moving eyes without any nausea or vomiting or dizziness. Turning her head left and right without any nausea vomiting or dizziness. Patient states symptoms nearly resolved and desires discharge home and to get her prescriptions filled before 9:00 p.[address].. at bedside driving. Time: 20:27 Vital Signs Vital signs: Vital Signs - 8 hr 04/27/20 15:57 04/27/20 16:47 04/27/20 17:00 Temperature 96.3 F L Pulse Rate 75 67 65 Respiratory Rate 15 12 14 Blood Pressure 141/77 H 124/79 Pulse Oximetry 96 98 97 04/27/20 17:30 04/27/20 18:00 04/27/20 18:30 Temperature Pulse Rate 63 70 66 Respiratory Rate 13 15 12 Blood Pressure 135/76 140/86 132/68 Pulse Oximetry 99 99 98 04/27/20 19:00 04/27/20 19:30 04/27/20 20:00 Temperature Pulse Rate 67 72 76 Respiratory Rate 12 17 18 Blood Pressure 128/78 137/85 139/87 Pulse Oximetry 99 97 97 04/27/20 20:22 Temperature Pulse Rate 80 Respiratory Rate 19 Blood Pressure 149/86 H Pulse Oximetry 98 Medical Decision Making <Elieser Chaves, - Last Filed: 04/28/20 07:09> ECG Data Attestation: I personally reviewed and interpreted this ECG as follows: Prior ECG tracings: not available for review Interpretation: Sinus rhythm Ventricular rate 83 Normal axis Normal QRS Normal QTC No ST T wave changes MDM Narrative Medical decision making narrative: I was able to reproduce the patient's symptoms with just turning her head to the left. With her knee into the right she reports no symptoms with lying with her head straight head she reports no symptoms. Due the fact that it occurred and woke her up this morning with turning and the lack of other symptoms in her normal neurologic exam other than the vertigo I suspect this is a peripheral vertigo. She was given meclizine which she reports only minimal improvement. Also having quite a bit nauseous was given Zofran. Patient has had Valium in the past and it made her very unsteady and ?loopy? and we would like to avoid that so that we do not complicate the situation however it may be necessary given her symptoms. Patient turned over to Dr. Alcantara to follow-up after patient has been administered fluids evaluation clinical improvement and disposition. Discharge Plan Departure Patient Disposition: Home Clinical Impression: Vertigo Discharge Date/Time: 04/27/20 20:39 Instructions: DI for Vertigo Activity Restrictions/Additional Instructions: Have your prescriptions filled tonight. See family doctor this week for recheck. No driving tonight. Return if worse or if any questions or concerns or dizziness returns without improvement with medications. Prescriptions: New ondansetron 4 mg tablet,disintegrating 4 mg PO Q8H PRN (Reason: nausea and vomiting) Qty: 10 RF: 0 meclizine 25 mg tablet 25 mg PO TID PRN (Reason: dizziness) Qty: 20 RF: 0 No Action esomeprazole magnesium [Nexium 24HR] 20 mg capsule,delayed release(DR/EC) 20 mg PO DAILY RF: 0 [CO-Q-10] Qty: 0 RF: 0 glucosamine sulfate [Genicin] 500 MG capsule 500 mg PO Qty: 0 RF: 0 [probiotic] Qty: 0 RF: 0 losartan [Cozaar] 100 mg tablet 100 mg PO Q AM Qty: 90 RF: 1 metoprolol tartrate 50 mg tablet 50 mg PO Q DAY Qty: 90 RF: 0 turmeric root extract 500 mg capsule 500 mg PO DAILY RF: 0 Referrals: Connie Brown DO [Primary Care Provider] -
[2020-04-27] MEDS: MECLIZINE HCL 12.5 MG TABLET 25 MG PO (16:54)
--- NOTE | 2020-04-27 17:23 | PC.NURSE ---
Reports symptoms started today upon awakening. Nausea/vomiting this morning. Feels best when lying flat with eyes closed.
[2020-04-27] MEDS: ONDANSETRON 4 MG ODT PO (19:01)
[2020-04-27] MEDS: SODIUM CHLORIDE 0.9% 1,000 ML 1000 ML IV (19:11)
--- NOTE | 2020-04-27 19:51 | PC.NURSE ---
Pt recevied meclizine, zofran and iv fluids and reports feeling much better and would like to go home. aware.
== END 2020-04-27 20:39 | disposition home or self-care (01) ==
PROVIDERS: Emergency Provider Emergency Medicine; PCP Family Medicine
DX: R42 Dizziness and giddiness (principal); R11.2 Nausea with vomiting, unspecified
CPT/HCPCS: 93005; 96360; 99284

== ENCOUNTER → 2020-07-28 12:04 | Outpatient (CLI) | payer OTHER, SELFPAY ==
[2020-07-28 12:54] LABS: Hematocrit 41.7 % (36-46); Mean Corpuscular HGB Conc 33.5 % (30-36); Mean Corpuscular Hemoglobin 28.7 PG (26-34); Mean Corpuscular Volume 85.8 fL (80-100); Platelet Count 300 X10^3/uL (150-400); Red Blood Cell Count 4.86 X10^6/uL (4.0-5.2); Red Cell Distribution Width 13.9 % (11.6-14.8); White Blood Cell Count 6.2 X10^3/uL (4.5-11.0)
[2020-07-28 13:15] LABS: Alanine Aminotransferase 30 IU/L (<35); Albumin 4.5 g/dL (3.5-5.0); Albumin Globulin Ratio 1.5 (1.0-2.8); Alkaline Phosphatase 82 U/L (38-126); Aspartate Aminotransferase 27 IU/L (14-36); BUN Creatinine Ratio 20.5 (6-22); Bilirubin Total 0.4 mg/dL (0.2-1.3); Blood Urea Nitrogen 18 mg/dL (7-17); Calcium 9.4 mg/dL (8.4-10.2); Carbon Dioxide 28 mmol/L (22-32); Chloride 104 mmol/L (98-107); Cholesterol 221 mg/dL (140-199); Estimated Glomerular Filt Rate > 60.0 mL/min (>60); Glucose 116 mg/dL (80-110); HDL Cholesterol 43 mg/dL (40-60); HEMOLYSIS < 15 (0-50); LDL Cholesterol Calculated 125 mg/dL (<100); Potassium 4.5 mmol/L (3.4-5.1); Sodium 139 mmol/L (137-145); Total Protein 7.5 g/dL (6.3-8.2); Triglycerides 266 mg/dL (35-150)
[2020-07-28 14:16] LABS: TSH w/ Reflex to FT4 2.31 uIU/mL (0.47-4.68)
== END ==
PROVIDERS: PCP Registered Nurse Diabetes Educator; Referring Provider Registered Nurse Diabetes Educator; Visit Provider Registered Nurse Diabetes Educator
DX: Z00.00 Encounter for general adult medical examination without abnormal findings (principal); E78.5 Hyperlipidemia, unspecified; R73.01 Impaired fasting glucose
CPT/HCPCS: 36415; 80053; 80061; 83036; 84443; 85027

== ENCOUNTER → 2020-08-01 10:26 | Outpatient (CLI) | payer OTHER, SELFPAY ==
[2020-08-02 10:47] LABS: Fecal Immunochemical Test Negative (Negative)
== END ==
PROVIDERS: PCP Registered Nurse Diabetes Educator; Referring Provider Registered Nurse Diabetes Educator; Visit Provider Registered Nurse Diabetes Educator
DX: Z00.00 Encounter for general adult medical examination without abnormal findings (principal)
CPT/HCPCS: 36415; 82274

== ENCOUNTER 2020-09-15 12:26 | Emergency (ER) | payer OTHER, SELFPAY ==
[2020-09-15 12:38] VITALS: BP 131/87; PULSE 97; RESP 14; TEMP 36.6; O2SAT 94; BMI 37.1
--- NOTE | 2020-09-15 12:52 | ED.LOWEXIN ---
HPI - Extremity Injury (Lower) <CORINNE Foley - Last Filed: 09/15/20 15:42> General Chief Complaint: Extremity Injury, Lower Stated Complaint: pain behind right knee Time Seen by Provider: 09/15/20 12:27 Source: patient Mode of arrival: Wheelchair Limitations: no limitations History of Present Illness HPI Narrative: 59yo female presents to the ED for pain beyond the left knee. Patient states approximately 3 weeks ago she was stepping down from a chair and felt like she ?tweaked her knee ?. Patient states it was sore at this time but started to resolve. Over the past week she noticed worsening pain find any, she states it is a dull aching pain that is worse when she transitions from sitting to standing as well as walking, patient reports the pain may be to right hip.. Patient states the pain has worsened over the past week. She denies any direct trauma to the area. Patient denies any history of blood clots, leg swelling, calf pain, ankle pain, fevers, chills, nausea, vomiting, diarrhea, or concerns. Patient states she occasionally feels short of breath when she is wearing masks. Related Data Home Medications Medication Instructions Recorded Confirmed [CO-Q-10] #0 10/16/16 08/01/20 [probiotic] #0 11/28/16 08/01/20 glucosamine sulfate [Genicin] 500 mg PO #0 11/28/16 08/01/20 esomeprazole magnesium 20 mg 20 mg PO DAILY 09/19/18 08/01/20 capsule,delayed release turmeric root extract 500 mg 500 mg PO DAILY 07/24/19 08/01/20 capsule neurvia PO 05/04/20 08/01/20 Previous Rx's Medication Instructions Recorded meclizine 25 mg tablet 25 mg PO TID PRN #30 tab 05/04/20 losartan 100 mg tablet 100 mg PO Q AM #90 tab 08/01/20 metoprolol tartrate 50 mg tablet 50 mg PO Q DAY #90 tab 08/01/20 Allergies Allergy/AdvReac Type Severity Reaction Status Date / Time adhesive [ADHESIVE] Allergy Unknown Verified 08/01/20 11:41 Review of Systems <CORINNE Foley - Last Filed: 09/15/20 15:42> Review of Systems Narrative: REVIEW OF SYSTEMS: GENERAL: Denies fever or chills. HENT: No head trauma. CARDIOVASCULAR: No chest pain. GASTROINTESTINAL: No nausea nausea vomiting. MUSCULOSKELETAL: Complains of right knee pain, see HPI. INTEGUMENTARY: No rash. NEURO: No numbness, tingling. Patient History <CORINNE Foley - Last Filed: 09/15/20 15:42> Medical History Dyslipidemia Essential hypertension (07/16/17) Hypertension Hypertriglyceridemia (07/16/17) Impaired fasting blood sugar Family History Brother Age: 63 Heart disease Father Age: 89 Heart disease Mother Age: 83 Heart disease Social History Smoking Status: Never smoker alcohol intake: current (Occasional) Smoking Status: Never smoker alcohol intake frequency: holidays/special occasions only Substance Use Type: does not use Exam <CORINNE Foley - Last Filed: 09/15/20 15:42> Initial Vital Signs Initial Vital Signs: Vital Signs Temperature 97.8 F 09/15/20 12:38 Pulse Rate 97 H 09/15/20 12:38 Respiratory Rate 14 09/15/20 12:38 Blood Pressure 131/87 09/15/20 12:38 Pulse Oximetry 94 09/15/20 12:38 PHYSICAL EXAMINATION: GENERAL: Awake and alert. HENT: Normocephalic, atraumatic. EYES: Symmetrical, sclera white, no periorbital swelling. CARDIOVASCULAR: S1 and S2 sounds normal. Regular rate and rhythm, no murmurs, clicks, or bruits. No pedal edema. RESPIRATORY: Normal respiratory rate, trachea midline, airway patent. No stridor, nasal flaring or accessory muscle use. Lungs are clear in all hong. MUSCULOSKELETAL: Tenderness to back of knee along joint line. Increased pain with flexion, patient is only able to flex knee approximately 90? given pain. Stable joint with drawer test. Negative Alexandra sign. No lower extremity swelling or calf tenderness. Negative Homans sign. EXTREMITIES: CMS intact. Pedal pulse strong and intact. SKIN: Warm, dry, soft, appropriate color for ethnicity. No lesions, rashes, or wounds. NEURO: Alert and Oriented X 3. No sensory deficits. PSYCH: Appropriate affect and mood. <Elieser Chaves DO - Last Filed: 09/15/20 16:04> Initial Vital Signs Initial Vital Signs: Vital Signs Temperature 97.8 F 09/15/20 12:38 Pulse Rate 97 H 09/15/20 12:38 Respiratory Rate 14 09/15/20 12:38 Blood Pressure 131/87 09/15/20 12:38 Pulse Oximetry 94 09/15/20 12:38 Scores <CORINNE Foley - Last Filed: 09/15/20 15:42> Milo' Criteria for DVT Active Cancer (Treatment within 6 months): No Bedridden recently >3 days or major surgery within 4 weeks: No Calf Swelling >3cm compared to other leg: No Collateral (nonvericose) superficial veins present: No Entire leg swollen: No Localized tenderness along the deep vein system: No Pitting edema, confined to symtomatic leg: No Paralysis, paresis, or recent plaster immobilization of ext: No Previously documented DVT: No Alternative dx to DVT as likely or more likely: No Wells' criteria for DVT: 0 Course <CORINNE Foley - Last Filed: 09/15/20 15:42> Course Course Narrative: Patient has a Well's Score of 0. However, she initially walked in and reported some shortness of breath that she usually gets while wearing a mask. Patient was slashing in bed and had a sat of 94%. D-dimer was ordered to further assess for blood clots. Orders Ordered: ED Orders 09/15/20 12:54 XR knee RT 3V Stat 09/15/20 13:12 D Dimer Stat Discontinued Medications Ketorolac Tromethamine (Ketorolac 60 Mg/2 Ml Vial) 30 mg IM NOW ONE Stop: 09/15/20 12:55 Last Admin: 09/15/20 13:03 Dose: 30 mg Documented by: VERONICA Consultations Consultation #1: Patient staffed with Dr. Chaves discussed test, test results, plan of care. Vital Signs Vital signs: Vital Signs - 8 hr 09/15/20 12:38 09/15/20 14:21 Temperature 97.8 F Pulse Rate 97 H 75 Respiratory Rate 14 Blood Pressure 131/87 144/87 H Pulse Oximetry 94 96 <Elieser Chaves DO - Last Filed: 09/15/20 16:04> Orders Ordered: ED Orders 09/15/20 12:54 XR knee RT 3V Stat 09/15/20 13:12 D Dimer Stat Discontinued Medications Ketorolac Tromethamine (Ketorolac 60 Mg/2 Ml Vial) 30 mg IM NOW ONE Stop: 09/15/20 12:55 Last Admin: 09/15/20 13:03 Dose: 30 mg Documented by: VERONICA Vital Signs Vital signs: Vital Signs - 8 hr 09/15/20 12:38 09/15/20 14:21 Temperature 97.8 F Pulse Rate 97 H 75 Respiratory Rate 14 Blood Pressure 131/87 144/87 H Pulse Oximetry 94 96 MDM - Extremity Injury (Lower) <CORINNE Foley - Last Filed: 09/15/20 15:42> Medical Records Attestation: I reviewed the patient's medical records. Lab Data Attestation: I reviewed the patient's lab results. Labs: Lab Results 09/15/20 Range/Units 13:12 D-Dimer < 200 (<230) ng/mL Imaging Data Extremity x-ray #1: Radiologist's Impression: [address] [id number] ReportSigned Patient: Claire Rothman R#: [id number]: 1960Acct:[id number]/Sex: 59 / FDate of Service: 09/15/20Loc: EDAccession Number: [id number] Procedure: XR knee RT 3V Ordering Provider: Nilsa Benjamin PROCEDURE: XR KNEE RT 3V INDICATIONS: R knee pain TECHNIQUE: 3 views of the knee were acquired. COMPARISON: [facility], CR, XR KNEE LT 3V, 11/19/2018, 18:10. FINDINGS: Bones: No fracture. Scattered degenerative subchondral sclerosis and spurring. Minimal narrowing of the medial joint space. Mild narrowing of the patellofemoral joint space. Soft tissues: No joint effusion. No suspicious soft tissue calcifications. IMPRESSION: Mild degenerative joint disease. Dictated by: Rolo Malone M.D. on 09/15/2020 at 13:42 Approved by: Rolo Malone M.D. on 09/15/2020 at 13:[address] [facility] Narrative Medical decision making narrative: History and examination concerning for sprain versus strain versus meniscus injury to right knee. Patient does have pain with weight-bearing and flexing, given mechanism of injury, there is increased concern firm meniscus injury. Less likely fracture given negative x-ray and lack of direct trauma or falls. Less likely DVT given well's criteria score of 0 and D-dimer negative, no lower extremity swelling. Less likely infection due to lack of erythema, redness, or significant swelling. Patient initially had oxygen saturation of 94% after ambulating, she states this is often due to slouching. After patient was repositioned, oxygen saturation return my 97%. She did not have any shortness of breath or other concerning symptoms for PE such as tachycardia or respiratory issues. Additionally, D-dimer is negative. Low risk factors. Patient was offered a knee immobilizer, she declined at this time she states she has 1 at home. She was encouraged to follow-up with an orthopedic, referral was placed. Return precautions given for new or worsening symptoms, NSAIDs were encouraged to help with pain. Patient did have relief from Toradol. <Elieser Chaves, DO - Last Filed: 09/15/20 16:04> Lab Data Labs: Lab Results 09/15/20 Range/Units 13:12 D-Dimer < 200 (<230) ng/mL Discharge Plan Departure Patient Disposition: Home Clinical Impression: Acute knee pain Qualifiers: Laterality: right Qualified Code(s): M25.561 - Pain in right knee Instructions: DI for Knee Pain Activity Restrictions/Additional Instructions: Thank you for entrusting me with your care today. As discussed, your x-rays negative for any fractures. There is some degenerative joint disease noted. I suggest following up with the orthopedic listed below, call their office and schedule an appointment in the next 1-2 weeks for further evaluation. Your knee pain may require further test. We have given you a brace to wear, you can use this one or purchased one with a hinge if that is more comfortable. I recommend taking ibuprofen, 400 mg every 6-8 hours as needed for the next few days. Return emergency department for any new or worsening symptoms including shortness of breath, calf pain, leg swelling, or any other concerns. Prescriptions: No Action esomeprazole magnesium [Nexium 24HR] 20 mg capsule,delayed release(DR/EC) 20 mg PO DAILY RF: 0 [CO-Q-10] Qty: 0 RF: 0 glucosamine sulfate [Genicin] 500 MG capsule 500 mg PO Qty: 0 RF: 0 [probiotic] Qty: 0 RF: 0 turmeric root extract 500 mg capsule 500 mg PO DAILY RF: 0 neurvia PO RF: 0 meclizine 25 mg tablet 25 mg PO TID PRN (Reason: dizziness) Qty: 30 RF: 1 losartan [Cozaar] 100 mg tablet 100 mg PO Q AM Qty: 90 RF: 3 metoprolol tartrate 50 mg tablet 50 mg PO Q DAY Qty: 90 RF: 3 Referrals: Miriam Etienne MD [Physician] - Shailesh Marie ARNP [Primary Care Provider] - <Elieser Chaves, - Last Filed: 09/15/20 16:04> [facility]: Dr Chaves Co-Sign Statement: I was available for consultation during this patient's emergency department visit. This chart is signed by myself for administrative purposes only. I did not have direct contact with this patient during this visit. They were seen independently by the APC.
[2020-09-15] MEDS: KETOROLAC 60 MG/2 ML VIAL 30 MG IM (13:03)
[2020-09-15 13:39] LABS: D Dimer < 200 ng/mL (<230)
[2020-09-15 14:21] VITALS: BP 144/87; PULSE 75; O2SAT 96
== END 2020-09-15 14:22 | disposition home or self-care (01) ==
PROVIDERS: Emergency Provider Nurse Practitioner; PCP Registered Nurse Diabetes Educator
DX: M25.561 Pain in right knee (principal)
CPT/HCPCS: 36415; 73562; 85379; 96372; 99281; 99283; J1885

== ENCOUNTER → 2020-11-10 12:01 | Outpatient (CLI) | payer OTHER, SELFPAY ==
[2020-11-10] MEDS: COVID-19 VACC #1, MRNA(MOD) 100 MCG/0.5 ML VIAL IM (12:06)
== END ==
PROVIDERS: PCP Registered Nurse Diabetes Educator; Visit Provider Internal Medicine
DX: Z23 Encounter for immunization (principal)
CPT/HCPCS: 0011A; 91301

== ENCOUNTER → 2020-12-08 11:52 | Outpatient (CLI) | payer OTHER, SELFPAY ==
[2020-12-08] MEDS: COVID-19 VACC #2, MRNA(MOD) 100 MCG/0.5 ML VIAL IM (12:02)
== END ==
PROVIDERS: PCP Registered Nurse Diabetes Educator; Visit Provider Internal Medicine
DX: Z23 Encounter for immunization (principal)
CPT/HCPCS: 0012A; 91301

== ENCOUNTER → 2021-08-10 11:04 | Outpatient (CLI) | payer OTHER, SELFPAY ==
[2021-08-10 12:50] LABS: Hematocrit 42.4 % (36-46); Hemoglobin 13.9 g/dL (12.0-16.0); Mean Corpuscular HGB Conc 32.8 % (30-36); Mean Corpuscular Hemoglobin 27.6 PG (26-34); Mean Corpuscular Volume 84.2 fL (80-100); Platelet Count 279 X10^3/uL (150-400); Red Blood Cell Count 5.03 X10^6/uL (4.0-5.2); White Blood Cell Count 5.7 X10^3/uL (4.5-11.0)
[2021-08-10 13:13] LABS: Hemoglobin A1C% w Est Avg Glu 5.8 % (4.0-6.0)
[2021-08-10 13:34] LABS: Alanine Aminotransferase 25 IU/L (<35); Albumin 4.5 g/dL (3.5-5.0); Albumin Globulin Ratio 1.9 (1.0-2.8); Alkaline Phosphatase 70 U/L (38-126); Aspartate Aminotransferase 21 IU/L (14-36); BUN Creatinine Ratio 17.3 (6-22); Bilirubin Total 0.4 mg/dL (0.2-1.3); Blood Urea Nitrogen 18 mg/dL (7-17); Calcium 9.6 mg/dL (8.4-10.2); Carbon Dioxide 28 mmol/L (22-32); Chloride 104 mmol/L (98-107); Cholesterol 180 mg/dL (140-199); Estimated Glomerular Filt Rate 53.9 mL/min (>60); Globulin 2.4 g/dL (1.7-4.1); Glucose 100 mg/dL (80-110); HDL Cholesterol 51 mg/dL (40-60); HEMOLYSIS < 15 (0-50); LDL Cholesterol Calculated 95 mg/dL (<100); Potassium 4.9 mmol/L (3.4-5.1); Sodium 140 mmol/L (137-145); Total Protein 6.9 g/dL (6.3-8.2); Triglycerides 170 mg/dL (35-150)
[2021-08-10 13:57] LABS: TSH w/ Reflex to FT4 1.59 uIU/mL (0.47-4.68)
== END ==
PROVIDERS: PCP Registered Nurse Diabetes Educator; Referring Provider Registered Nurse Diabetes Educator; Visit Provider Registered Nurse Diabetes Educator
DX: E78.5 Hyperlipidemia, unspecified (principal); I10 Essential (primary) hypertension; R73.01 Impaired fasting glucose
CPT/HCPCS: 36415; 80053; 80061; 83036; 84443; 85027

== ENCOUNTER → 2022-09-27 10:21 | Outpatient (CLI) | payer OTHER, SELFPAY ==
[2022-09-27 10:53] LABS: Hematocrit 41.4 % (36-46); Hemoglobin 13.4 g/dL (12.0-16.0); Mean Corpuscular HGB Conc 32.2 % (30-36); Mean Corpuscular Hemoglobin 27.4 PG (26-34); Mean Corpuscular Volume 84.9 fL (80-100); Platelet Count 339 X10^3/uL (150-400); Red Blood Cell Count 4.88 X10^6/uL (4.0-5.2); Red Cell Distribution Width 14.4 % (11.6-14.8); White Blood Cell Count 6.2 X10^3/uL (4.5-11.0)
[2022-09-27 11:22] LABS: Alanine Aminotransferase 29 IU/L (<35); Albumin Globulin Ratio 1.5 (1.0-2.8); Alkaline Phosphatase 72 U/L (38-126); Aspartate Aminotransferase 22 IU/L (14-36); BUN Creatinine Ratio 17.9 (6-22); Bilirubin Total 0.4 mg/dL (0.2-1.3); Blood Urea Nitrogen 14 mg/dL (7-17); Carbon Dioxide 28 mmol/L (22-32); Chloride 105 mmol/L (98-107); Cholesterol 198 mg/dL (140-199); Estimated Glomerular Filt Rate > 60 mL/min (>60); Globulin 2.7 g/dL (1.7-4.1); Glucose 110 mg/dL (80-110); HDL Cholesterol 55 mg/dL (40-60); HEMOLYSIS < 15 (0-50); LDL Cholesterol Calculated 100 mg/dL (<100); Potassium 4.9 mmol/L (3.4-5.1); Sodium 139 mmol/L (137-145); Total Protein 6.7 g/dL (6.3-8.2); Triglycerides 214 mg/dL (35-150)
[2022-09-27 11:57] LABS: TSH w/ Reflex to FT4 2.36 uIU/mL (0.47-4.68)
[2022-09-28 13:36] LABS: Fecal Immunochemical Test Negative (Negative)
== END ==
PROVIDERS: PCP Registered Nurse Diabetes Educator; Referring Provider Registered Nurse Diabetes Educator; Visit Provider Registered Nurse Diabetes Educator
DX: E78.5 Hyperlipidemia, unspecified (principal); I10 Essential (primary) hypertension; R73.01 Impaired fasting glucose; Z13.29 Encounter for screening for other suspected endocrine disorder; Z79.899 Other long term (current) drug therapy; Z12.11 Encounter for screening for malignant neoplasm of colon
CPT/HCPCS: 36415; 80053; 80061; 82274; 83036; 84443; 85027

== ENCOUNTER → 2023-05-21 10:35 | Outpatient (CLI) | payer OTHER, SELFPAY ==
[2023-05-21 11:38] LABS: Hemoglobin A1C% w Est Avg Glu 6.1 % (4.0-6.0)
[2023-05-21 11:44] LABS: Cholesterol 244 mg/dL (140-199); Glucose 107 mg/dL (80-110); HDL Cholesterol 47 mg/dL (40-60); LDL Cholesterol Calculated 147 mg/dL (<100); Triglycerides 250 mg/dL (35-150)
== END ==
PROVIDERS: PCP Registered Nurse Diabetes Educator; Referring Provider Registered Nurse Diabetes Educator; Visit Provider Registered Nurse Diabetes Educator
DX: E78.5 Hyperlipidemia, unspecified (principal); R73.01 Impaired fasting glucose; I10 Essential (primary) hypertension
CPT/HCPCS: 36415; 80061; 82947; 83036

== ENCOUNTER → 2023-05-28 11:11 | Outpatient (CLI) | payer OTHER, SELFPAY ==
--- NOTE | 2023-05-28 11:13 | DI.MG.S_ITS ---
BILATERAL DIGITAL SCREENING MAMMOGRAM 3D/2D WITH CAD: 05/28/2023 CLINICAL: Routine screening. Comparison is made to exam dated: 01/13/2008 mammogram - [facility]. There are scattered areas of fibroglandular density in both breasts (category b / 25%-50% glandular tissue). Current study was also evaluated with a Computer Aided Detection (CAD) system. No significant masses, calcifications, or other findings are seen in either breast. There has been no significant interval change. IMPRESSION: NEGATIVE There is no mammographic evidence of malignancy. A 1 year screening mammogram is recommended. Based on the Tyrer Cuzick model (a risk assessment model) the patient's lifetime risk is 6.6% and her 10 year risk is 3.0%. According to the ACR, ACS, and NCCN guidelines, an annual breast MRI exam along with mammogram is recommended if the patient's lifetime risk is 20% or greater. This exam was interpreted at Station ID: [id number]. NOTE: For mammograms, a report in lay terms will be sent to the patient. Approximately 15% of breast malignancies will not be visualized mammographically. In the management of a palpable breast mass, a negative mammogram must not discourage biopsy of a clinically suspicious lesion. Electronically Signed By: Richar fung/vicky:05/28/2023 14:09:37 letter sent: Normal Exam ACR BI-RADS Category 1: Negative [id number]
== END ==
PROVIDERS: PCP Registered Nurse Diabetes Educator; Referring Provider Registered Nurse Diabetes Educator; Visit Provider Registered Nurse Diabetes Educator
DX: Z12.31 Encounter for screening mammogram for malignant neoplasm of breast (principal)
CPT/HCPCS: 77063; 77067

== ENCOUNTER → 2023-10-31 11:23 | Outpatient (CLI) | payer OTHER, SELFPAY ==
[2023-10-31 12:32] LABS: Hematocrit 42.1 % (36-46); Mean Corpuscular HGB Conc 33.3 % (30-36); Mean Corpuscular Hemoglobin 28.5 PG (26-34); Mean Corpuscular Volume 85.5 fL (80-100); Platelet Count 326 X10^3/uL (150-400); Red Blood Cell Count 4.92 X10^6/uL (4.0-5.2); Red Cell Distribution Width 13.6 % (11.6-14.8)
[2023-10-31 15:46] LABS: HEMOLYSIS < 15 (0-50)
[2023-10-31 16:23] LABS: TSH w/ Reflex to FT4 1.44 uIU/mL (0.47-4.68)
[2023-10-31 17:36] LABS: Hemoglobin A1C% w Est Avg Glu 5.1 % (4.0-6.0)
[2023-10-31 20:20] LABS: HEMOLYSIS < 15 (0-50); Sodium 140 mmol/L (137-145)
[2023-10-31 20:21] LABS: Alanine Aminotransferase 25 IU/L (<35); Albumin 4.2 g/dL (3.5-5.0); Albumin Globulin Ratio 1.4 (1.0-2.8); Alkaline Phosphatase 67 U/L (38-126); Aspartate Aminotransferase 24 IU/L (14-36); BUN Creatinine Ratio 19.2 (6-22); Bilirubin Total 0.5 mg/dL (0.2-1.3); Blood Urea Nitrogen 14 mg/dL (7-17); Calcium 9.2 mg/dL (8.4-10.2); Carbon Dioxide 27 mmol/L (22-32); Chloride 108 mmol/L (98-107); Cholesterol 193 mg/dL (140-199); Estimated Glomerular Filt Rate > 60 mL/min (>60); Glucose 97 mg/dL (80-110); HDL Cholesterol 43 mg/dL (40-60); LDL Cholesterol Calculated 101 mg/dL (<100); Potassium 4.4 mmol/L (3.4-5.1); Total Protein 7.2 g/dL (6.3-8.2); Triglycerides 244 mg/dL (35-150)
[2023-10-31 20:54] LABS: Ferritin 112 ng/mL (11-264)
[2023-11-01 00:06] LABS: Testosterone 30.5 ng/dL (5.71-77.0)
[2023-11-01 10:01] LABS: Iron 93 ug/dL (37-170)
[2023-11-01 10:08] LABS: Percent Iron Saturation 33 % (15-50); Total Iron Binding Capacity 282 ug/dL (265-497); Transferrin 235 mg/dL (206-381)
[2023-11-03 11:13] LABS: Dehydroepiandrosterone Sulfate 81.1 ug/dL (29.4-220.5)
== END ==
PROVIDERS: PCP Registered Nurse Diabetes Educator; Referring Provider Registered Nurse Diabetes Educator; Visit Provider Registered Nurse Diabetes Educator
DX: E78.5 Hyperlipidemia, unspecified (principal); R73.01 Impaired fasting glucose; I10 Essential (primary) hypertension; L65.0 Telogen effluvium; L65.8 Other specified nonscarring hair loss; L68.0 Hirsutism
CPT/HCPCS: 36415; 80053; 80061; 82627; 82728; 83036; 83540; 83550; 84403; 84443; 85027

== ENCOUNTER → 2024-11-03 09:40 | Outpatient (CLI) | payer MEDICARE, OTHER, SELFPAY ==
[2024-11-03 10:12] LABS: Hemoglobin 13.6 g/dL (12.0-16.0); Mean Corpuscular HGB Conc 33.3 % (30-36); Mean Corpuscular Hemoglobin 28.3 PG (26-34); Mean Corpuscular Volume 85.2 fL (80-100); Platelet Count 297 X10^3/uL (150-400); Red Blood Cell Count 4.81 X10^6/uL (4.0-5.2); Red Cell Distribution Width 14.5 % (11.6-14.8); White Blood Cell Count 7.2 X10^3/uL (4.5-11.0)
[2024-11-03 10:21] LABS: Hemoglobin A1C% w Est Avg Glu 5.5 % (4.0-6.0)
[2024-11-03 10:46] LABS: Alanine Aminotransferase 26 IU/L (<35); Albumin 4.3 g/dL (3.5-5.0); Albumin Globulin Ratio 1.7 (1.0-2.8); Alkaline Phosphatase 70 U/L (38-126); Aspartate Aminotransferase 27 IU/L (14-36); BUN Creatinine Ratio 25.9 (6-22); Bilirubin Total 0.6 mg/dL (0.2-1.3); Blood Urea Nitrogen 21 mg/dL (7-17); Calcium 9.2 mg/dL (8.4-10.2); Carbon Dioxide 24 mmol/L (22-32); Chloride 107 mmol/L (98-107); Cholesterol 241 mg/dL (140-199); Estimated Glomerular Filt Rate > 60 mL/min (>60); Globulin 2.6 g/dL (1.7-4.1); Glucose 115 mg/dL (80-110); HDL Cholesterol 53 mg/dL (40-60); HEMOLYSIS < 15 (0-50); LDL Cholesterol Calculated 131 mg/dL (<100); Potassium 4.3 mmol/L (3.4-5.1); Sodium 139 mmol/L (137-145); Total Protein 6.9 g/dL (6.3-8.2); Triglycerides 284 mg/dL (35-150)
[2024-11-03 11:10] LABS: TSH w/ Reflex to FT4 2.41 uIU/mL (0.47-4.68)
[2024-11-05 21:37] LABS: Deamidated Gliadin Ab IgA 2 units (0-19); Deamidated Gliadin Ab IgG 2 units (0-19); Immunoglobulin A,Qn 96 mg/dL (87-352); t-Transglutaminase IgA <2 U/mL (0-3)
== END ==
LOC: LAB 09:43
PROVIDERS: PCP Registered Nurse Diabetes Educator; Referring Provider Registered Nurse Diabetes Educator; Visit Provider Registered Nurse Diabetes Educator
DX: E78.5 Hyperlipidemia, unspecified (principal); R73.01 Impaired fasting glucose; I10 Essential (primary) hypertension; R14.2 Eructation; R19.7 Diarrhea, unspecified; T78.1XXA Other adverse food reactions, not elsewhere classified, initial encounter; R10.9 Unspecified abdominal pain
CPT/HCPCS: 36415; 80053; 80061; 82784; 83036; 83516; 84443; 85027; 86003

== ENCOUNTER → 2025-06-11 13:43 | Outpatient (CLI) | payer MEDICARE, OTHER, SELFPAY ==
[2025-06-11 15:00] LABS: Alanine Aminotransferase 21 IU/L (<35); Albumin 4.4 g/dL (3.5-5.0); Albumin Globulin Ratio 1.7 (1.0-2.8); Alkaline Phosphatase 72 U/L (38-126); Globulin 2.6 g/dL (1.7-4.1); HEMOLYSIS < 15 (0-50); Total Protein 7.0 g/dL (6.3-8.2)
== END ==
PROVIDERS: PCP Registered Nurse Diabetes Educator; Referring Provider Registered Nurse Diabetes Educator; Visit Provider Registered Nurse Diabetes Educator
DX: Z51.81 Encounter for therapeutic drug level monitoring (principal); Z68.36 Body mass index [BMI] 36.0-36.9, adult
CPT/HCPCS: 36415; 80076